=== PATIENT | male | born 1955 | race Caucasian/White ===

== ENCOUNTER 2019-09-20 16:12 | Emergency (ER) | payer BC ==
--- OUTSIDE RECORDS SUMMARY | 2019-09-20 16:19 | XMS REPORT | Summary of Care ---
:1955 Author Organization [facility] Address [address] [place] [id number] Care Team Providers Name Role Phone Jenny Arevalo NP Primary Care Provider Reason for Visit Reason Comments Procedure Encounter Details Date Type Department Care Team Description 08/11/2019 Procedure visit Deacon Alfaro Chronic hoarseness ( Primary Dx); Otolaryngology MD [facility] [address] at [place], [place] [address] [address] [address] [phone] [place], [place] [phone] (Fax) [phone] Allergies Active Allergy Reactions Severity Noted Date Comments Penicillins Other (See Comments) 07/04/2018 Not sure documented as of this encounter (statuses as of 08/11/2019) Medications Medication Sig Dispensed Refills Start Date End Date Status amlodipine Take 5 mg by 1 04/02/2019 Active (NORVASC) 5 MG mouth daily tablet omeprazole Take 40 mg 1 03/17/2019 Active (PRILOSEC) 40 MG by mouth capsule daily SPIRIVA RESPIMAT INHALE 1 TO 03/27/2019 Active 2.5 MCG/ACT AERS 2 SPRAY(S) inhalation spray BY MOUTH ONCE DAILY tamsulosin TAKE 1 5 03/17/2019 Active (FLOMAX) 0.4 MG CAPSULE BY capsule MOUTH ONCE DAILY 30 MINUTES AFTER THE SAME MEAL montelukast Take 10 mg 2 03/15/2019 Active (SINGULAIR) 10 MG by mouth tablet daily ibuprofen 1 02/01/2019 Active (ADVIL,MOTRIN) 800 MG tablet simvastatin 0 06/09/2018 Active (ZOCOR) 20 MG tablet famotidine Take 1 90 tablet 3 07/18/2019 Active (PEPCID) 40 MG tablet by 0 tablet mouth nightly clotrimazole Take 1 300 lozenge 0 08/11/2019 Active (MYCELEX) 10 MG lozenge by 9 curry mouth Five times daily ranitidine Take 1 90 tablet 3 04/05/2019 Discontinued (ZANTAC) 300 MG tablet by 9 (Alternate tablet mouth therapy) nightly documented as of this encounter (statuses as of 08/11/2019) Active Problems Problem Noted Date Chronic hoarseness 04/05/2019 Reflux laryngitis 04/05/2019 Chronic laryngitis 04/05/2019 documented as of this encounter (statuses as of 08/11/2019) Social History Tobacco Use Types Packs/Day Years Used Date Former Smoker 1.5 Quit: 02/2011 Smokeless Tobacco: Never Used Alcohol Use Drinks/Week oz/Week Comments Yes 10-20 Standard drinks or equivalent 10.0 - 20.0 Sex Assigned at Date Recorded Not on file Job Start Date Occupation Industry Not on file Not on file Not on file Travel History Travel Start Travel End No recent travel history available. documented as of this encounter Last Filed Vital Signs Not on filedocumented in this encounter Progress Notes Deacon Rivera MD - 08/11/2019 11:00 AM Laverne Evans is a 64 y.o. with voice issues. Seen at the request of Dr Arevalo 03/29: This began 24 months ago. The patient describes the quality as raspy "comes and goes" Getting worse no Saw Dr Garcia 08/27 and ABX given with some improvement. Then saw in [place] and thought to have fungal laryngitis and Diflucan tried for weeks. Patient felt it was helpful but off meds, got worse. Had ID consult and Cx done (describes in office scope and trans-oral swab). Office notes reviewed. Has seen GI but last EGD 2013? Has been on omeprazole for 4 years. Recent breathing issue and went to UC: neb and prednisone and ABX Has never been on inhaled steroid Throat clearing yes Throat pain yes-soreness with use "Lump" sensation no Asthma no ?? Post nasal drainage yes Cough yes Swallowing problems yes. occasion Solids no Liquids no Coffee/day 1-2 Alcohol/week 10-20 Soda/day no Dairy at night no Smoking no. Past smoking within 5 years: no-quit 2010 Sees GI yes - Sees PULM no - Fungal> bacterial. Possible lichus-planus equivalent or leukoplakia Daughter raised concern or possibility of H pylori. Will try flagyl/biaxin ( PCN all) and add Ranit to PPI currently taking. mycelex for 3-4 weeks See in 3 weeks to see if better, may need additional cx or even bx for fungal elements 04/28: feels voice is better. Finished ABX and on PPI/R and mycelex. Wonders if he can drink beer again (and ice cream). 05/29: on Mycelex and voice continues to improve. 2 beers and JBeam for birthday. On reflux meds 06/23/19: he feels continues to improve. On Mycelex TODAY: again, fells he is continue to improve. "best my voice has been in 3 years". Less effortful The patients PMH, PSH, ROS, ALL, Meds, SH, FH are all updated and noted in the EMR PHYSICAL EXAM Awake, alert, cooperative, no acute distress. Voice is mild raspy, no stridor Face inspected and no deformity, lesions noted. Cranial nerves tested and intact. Conjunctiva are clear. Pupils equal, round. Extraocular movements are intact. Neck is supple, no adenopathy, no thyroid masses, no salivary gland enlargement. Intraoral exam, no lesions of the tongue, palate, floor of mouth, buccal surface. Sinuses non tender. Anterior nose, septum intact, no perforations, no obvious intranasal polyps. Ear canals are patent. TMs intact, no fluid. Mastoids non tender. TMJs negative. It was decided today that based on sxs, a stroboscopic exam is needed today to evaluate the vocal folds: Stroboscopic exam was performed using an Olympus stroboscopy unit and iMAC monitor with flex scope (rigid scope. + cetacaine, in past). Amplitude of vibration, degree of vibration of each vocal fold, vocal fold edges and degree/ type of glottic closure was assessed. DNS to left, no polyps, normal mucosa ABD/ADD: Right intact Left intact Closure: ? complete Right edge: mild irregular, pink Left edge: mild irregular Vibration R (100 %) Vibration L (100 %) Has no FVC compression; less dense white lacy material in supraglottis on right with defined border,no ulcerations, no discolored mucus A/P: This is a 64 y.o. with voice issue: chronic laryngitis. ?Fungal. Possible lichus-planus equivalent or leukoplakia mycelex continue 2 more months. Have PCP check LFTs (written and given since he will have blood work next week at PCP) See in 8 weeks to see if no better, may need additional cx or even bx for fungal element LPR meds and measures were reviewed documented in this encounter Plan of Treatment Date Type Specialty Care Team Description 10/13/2019 Procedure visit Otolaryngology Deacon Rivera MD [address] [place] [address] [phone] Health Maintenance Due Date Last Done Comments Hepatitis C Screening (B. 1955 [id number]) MMR Vaccines (1 of 1 - Standard 1957 series) DTaP,Tdap,and Td Vaccines (1 - 1963 Tdap) HIV Screening 1969 Colon Cancer Screening 10 yrs 2006 Zoster Vaccines (1 of 2) 2006 Influenza Vaccine 07/11/2019 Pneumococcal Vaccine: 65+ Years (1 2021 of 2 - PCV13) HIB Vaccines Aged Out No longer eligible based on patient's age to complete this topic Hepatitis A Vaccines Aged Out No longer eligible based on patient's age to complete this topic Hepatitis B Vaccines Aged Out No longer eligible based on patient's age to complete this topic IPV Vaccines Aged Out No longer eligible based on patient's age to complete this topic Pneumococcal Vaccine: Pediatrics Aged Out No longer eligible based on (0 to 5 Years) and At-Risk patient's age to complete this Patients (6 to 64 Years) topic Varicella Vaccines Aged Out No longer eligible based on patient's age to complete this topic documented as of this encounter Results Not on filedocumented in this encounter Visit Diagnoses Diagnosis Chronic hoarseness - Primary Dysphonia Chronic laryngitis documented in this encounter
[2019-09-20 16:23] VITALS: BP 140/68
--- NOTE | 2019-09-20 17:20 | UC ---
Respiratory Complaint HPI - HPI Summary HPI Summary: 1 WEEK OF COUGH, CONGESTION, FATIGUE, ST. FEELS CHILLED/CLAMMY. NO FLU SHOT THIS SEASON. - History of Current Complaint Chief Complaint: UCRespiratory Stated Complaint: COLD SYMPTOMS Time Seen by Provider: 09/20/19 16:35 Hx Obtained From: Patient, Family/[employer] - Onset/Duration: Gradual Onset, Lasting Days, Still Present Timing: Constant Severity Initially: Moderate Severity Currently: Moderate Pain Intensity: 7 Pain Scale Used: 0-10 Numeric Character: Cough: Nonproductive Aggravating Factors: Nothing Alleviating Factors: Nothing Associated Signs And Symptoms: Positive: Chills, URI, Nasal Congestion, Hoarseness. Negative: Dyspnea, Fever - Allergies/Home Medications Allergies/Adverse Reactions: Allergies Allergy/AdvReac Type Severity Reaction Status Date / Time Penicillins Allergy Swelling Verified 09/20/19 16:23 Home Medications: Home Medications Clotrimazole [Antifungal] 10 mg PO DAILY 09/20/19 [History Confirmed 09/20/19] PMH/Surg Hx/FS Hx/Imm Hx Previously Healthy: Yes - Surgical History Surgical History: None Surgery Procedure, Year, and Place: 1963 APPENDECTOMY, [facility]. 1964 LEFT TESTICLE HERNIA, [facility] - Family History Known Family History: Positive: Cardiac Disease - [place] (father) - Social History Alcohol Use: Daily Alcohol Amount: 4-6 drinks a day Substance Use Type: None Smoking Status (MU): Former Smoker Amount Used/How Often: 1.5 PPD Length of Time of Smoking/Using Tobacco: 42 YEARS Have You Smoked in the Last Year: No When Did the Patient Quit Smoking/Using Tobacco: 2009 - Immunization History Most Recent Influenza Vaccination: never Most Recent Tetanus Shot: up to date Most Recent Pneumonia Vaccination: never Review of Systems All Other Systems Reviewed And Are Negative: Yes Constitutional: Positive: Chills, Fatigue ENT: Positive: Sore Throat, Nasal Discharge Respiratory: Positive: Cough Cardiovascular: Positive: Negative Gastrointestinal: Positive: Negative Physical Exam Triage Information Reviewed: Yes Appearance: Well-Appearing, No Pain Distress, Well-Nourished Vital Signs: Initial Vital Signs Temp 99.1 F 09/20/19 16:18 Pulse 75 09/20/19 16:18 Resp 18 09/20/19 16:18 BP 140/68 09/20/19 16:18 Pulse Ox 96 09/20/19 16:18 Laboratory Tests 09/20/19 17:18 Influenza A (Rapid) Negative Influenza B (Rapid) Negative Vital Signs Reviewed: Yes Eyes: Positive: Conjunctiva Clear ENT: Positive: Hearing grossly normal, Pharynx normal, TMs normal, Hoarse voice Neck: Positive: Supple, Nontender, No Lymphadenopathy Respiratory Exam: Normal Cardiovascular Exam: Normal Abdomen Description: Positive: Soft Musculoskeletal: Positive: No Edema Neurological: Positive: Alert Psychological: Positive: Age Appropriate Behavior Skin: Negative: Rashes Diagnostics - Radiology CXR Radiology Interpretation Completed By: Radiologist Summary of Radiographic Findings: No radiographic evidence of acute cardiopulmonary disease. Respiratory Course/Dx - Course Course Of Treatment: FLU SWAB NEGATIVE. CHEST X-RAY UNREMARKABLE. PATIENT WITH LIKELY VIRAL UPPER RESPIRATORY INFECTION THAT WILL RESOLVE ON ITS OWN WITH TIME. RECOMMENDED CONSERVATIVE MANAGEMENT WITH REST, HYDRATION, OTC MEDICATIONS NEEDED. PATIENT REPORTS HE IS CURRENTLY BEING TREATED FOR AN ESOPHAGEAL FUNGAL INFECTION THAT HE HAS BEEN STRUGGLING WITH FOR ABOUT 2 YEARS. SUCH I WOULD HESITATE TO TREAT EMPIRICALLY WITH ANTIBIOTICS OR PREDNISONE AT THIS TIME. PATIENT IS IN AGREEMENT WITH THIS. - Differential Dx/Diagnosis Provider Diagnosis: Upper respiratory infection Discharge ED - Sign-Out/Discharge Documenting (check all that apply): Patient Departure All imaging exams completed and their final reports reviewed: Yes - Discharge Plan Condition: Stable Disposition: HOME Patient Education Materials: Upper Respiratory Infection (ED) Referrals: Itzel Duran NP [Primary Care Provider] - If Needed Additional Instructions: FLU SWAB NEGATIVE. CHEST XRAY UNREMARKABLE. YOUR SYMPTOMS ARE LIKELY VIRALLY MEDIATED AND SHOULD RESOLVE ON THEIR OWN WITH TIME. NO INDICATION FOR ANTIBIOTICS AT PRESENT. REST, HYDRATE, OTC MEDS NEEDED. SEEK FOLLOW-UP IF YOU ARE NOT IMPROVING OVER THE NEXT 1-2 WEEKS. - Billing Disposition and Condition Condition: STABLE Disposition: Home
[2019-09-20 17:29] LABS: Influenza A Molecular NEGATIVE (Negative); Influenza B Molecular NEGATIVE (Negative)
== END 2019-09-20 18:00 | disposition home or self-care (01) ==
LOC: UCEAST 16:12
DX: J06.9 Acute upper respiratory infection, unspecified (principal); R53.83 Other fatigue; B48.8 Other specified mycoses; Z88.0 Allergy status to penicillin; Z87.891 Personal history of nicotine dependence
CPT/HCPCS: 71046; 99201; G0463